=== PATIENT | male | born 1935 | race Caucasian/White ===

== ENCOUNTER → 2024-06-17 | Outpatient (CLI) | payer OTHER, MEDICARE ==
[~2024-06-17] MED LIST: ASPI81EC PO; FISH1000 PO; MULVITMIND; SIMV40 PO; ZESTORETIC 20-121 E1 PO
== END | disposition home or self-care (01) ==
LOC: LAB SHORT 15:09
DX: R39.9 Unspecified symptoms and signs involving the genitourinary system (principal)
CPT/HCPCS: 87086